=== PATIENT | female | born 1945 | race Caucasian/White ===

== ENCOUNTER 2024-01-10 10:41 | Inpatient (IN) | payer OTHER ==
[~2024-01-10] VITALS: Ht 154.9 cm; Wt 98.4 kg
[2024-01-10] VITALS (10 sets, daily range): BP systolic 114–164; PULSE 103–147; RESP 10–19; TEMP 97.1–98; O2SAT 93–98
[~2024-01-10 10:41] MED LIST: ASA400 PO; BENA40TA89 PO; BRIN8DRO OP; METO-442 PO; PARO40TA80 PO; POTA10TA15 PO; REMI100 IM; ZOLP10TA2 PO
[2024-01-10] MEDS: dilTIAZem HCL IVP 5 MG/ML VIAL IVP ONE (10:59)
[2024-01-10] MEDS: DILTIAZEM HCL 60 MG TABLET PO ONE (11:00)
[2024-01-10 11:12] LABS: BASOPHILS # (AUTO) 0.1 K/uL (0.0-0.2); BASOPHILS % (AUTO) 0.8 % (0.0-2.0); EOSINOPHILS # (AUTO) 0.3 K/uL (0.0-0.4); HEMATOCRIT 42.8 % (36-48); HEMOGLOBIN 14.2 g/dL (12.0-16.0); LYMPHOCYTES # (AUTO) 2.9 K/uL (1.0-5.5); LYMPHOCYTES % (AUTO) 19.9 % (20.5-51.5); MEAN CORPUSCULAR HEMOGLOBIN 29 pg (27-31); MEAN CORPUSCULAR HGB CONC 33 % (32-36); MEAN CORPUSCULAR VOLUME 88 fL (79.0-98.0); MONOCYTES % (AUTO) 6.6 % (1.7-9.3); NEUTROPHILS # (AUTO) 10.4 K/uL (1.8-7.7); NEUTROPHILS % (AUTO) 70.7 % (40.0-70.0); PLATELET COUNT (AUTO) 283 K/uL (130-430); RED BLOOD CELL COUNT(AUTO) 4.88 MIL/uL (4.2-6.2); RED CELL DISTRIBUTION WIDTH 14.7 % (9.0-15.0); WHITE BLOOD COUNT (AUTO) 14.7 K/uL (4.8-10.8)
[2024-01-10] MEDS ORDERED: ATOR20TA64 PO (11:18)
[2024-01-10] MEDS ORDERED: ISOS30TA85 PO (11:18)
[2024-01-10] MEDS ORDERED: HYDR12.55 PO (11:19)
[2024-01-10] MEDS ORDERED: METF-379 PO (11:19)
[2024-01-10] MEDS ORDERED: METO50TA16 PO (11:19)
[2024-01-10] MEDS ORDERED: BENA10TA73 PO (11:19)
[2024-01-10] MEDS ORDERED: ASPI-1393 PO (11:21)
[2024-01-10 11:26] LABS: PROTHROMBIN TIME 10.5 SECS (9.5-12.5)
[2024-01-10 11:30] LABS: ALANINE AMINOTRANSFERASE 19 U/L (12-78); ALBUMIN 3.6 g/dL (3.4-4.8); ANION GAP 11 (5-15); ASPARTATE AMINOTRANSFERASE 19 U/L (10-37); BILIRUBIN,DIRECT 0.1 mg/dL (0.0-0.3); CALCIUM 10.4 mg/dL (8.4-11.0); CARBON DIOXIDE 29 mmol/L (23-29); CHLORIDE 100 mmol/L (98-107); CREATINE KINASE, TOTAL 51 U/L (26-192); CREATININE 1.07 mg/dL (0.55-1.30); GLUCOSE 174 mg/dL (74-106); SODIUM SERUM 140 mmol/L (136-145); TOTAL BILIRUBIN 0.5 mg/dL (0.0-1.0); TOTAL PROTEIN, SERUM 8.1 g/dL (6.4-8.3); UREA NITROGEN, BLOOD 23 mg/dL (8-21)
[2024-01-10] MEDS: LIDOCAINE JECT 2% PF 100 MG/5ML SYRINGE IVP ONE (11:43)
[2024-01-10] MEDS: POTASSIUM CHLORIDE 20 MEQ/PKT PACKET PO ONE ×2 (11:52→15:47)
[2024-01-10] MEDS: DIGOXIN 0.5 MG/2 ML AMP IVP ONE ×2 (15:48→21:33)
[2024-01-10] MEDS: METOPROLOL TARTRATE 50 MG TABLET PO ONE (15:48)
[2024-01-10] MEDS: METOPROLOL TARTRATE 50 MG TABLET PO SCH (21:34)
[2024-01-10] MEDS: hydrALAZINE HCL 20 MG/ML VIAL IVP PRN (23:20)
[2024-01-11] VITALS (24 sets, daily range): BP systolic 117–167; PULSE 62–137; RESP 15–26; TEMP 96.2–98.1; O2SAT 93–98
[2024-01-11] MEDS ORDERED: ACETAMINOPHEN 325 MG TABLET PO PRN (00:15)
[2024-01-11] MEDS: NITROGLYCERIN 0.4 MG TAB.SUBL SL ONE (00:25)
[2024-01-11] MEDS: MORPHINE 2 MG/ML INJ. SYRINGE ONE (00:26)
[2024-01-11] MEDS: NITROGLYCERIN 0.4 MG TAB.SUBL SL PRN (00:28)
[2024-01-11] MEDS: MORPHINE 2 MG/ML INJ. SYRINGE IVP PRN (00:29)
[2024-01-11] MEDS: HYDROcodone/ACETAMIN 5-325 MG TAB (NORCO/ VICODIN) PO PRN (00:47)
[2024-01-11] MEDS: DIGOXIN 0.5 MG/2 ML AMP IVP ONE (03:32)
[2024-01-11 05:06] LABS: BASOPHILS # (AUTO) 0.1 K/uL (0.0-0.2); BASOPHILS % (AUTO) 0.6 % (0.0-2.0); EOSINOPHILS # (AUTO) 0.1 K/uL (0.0-0.4); EOSINOPHILS % (AUTO) 0.9 % (0.0-4.0); HEMATOCRIT 40.9 % (36-48); HEMOGLOBIN 13.6 g/dL (12.0-16.0); LYMPHOCYTES # (AUTO) 1.7 K/uL (1.0-5.5); LYMPHOCYTES % (AUTO) 14.5 % (20.5-51.5); MEAN CORPUSCULAR HEMOGLOBIN 29 pg (27-31); MEAN CORPUSCULAR HGB CONC 33 % (32-36); MEAN CORPUSCULAR VOLUME 88 fL (79.0-98.0); MONOCYTES # (AUTO) 0.7 K/uL (0.0-1.0); MONOCYTES % (AUTO) 6.1 % (1.7-9.3); NEUTROPHILS # (AUTO) 8.9 K/uL (1.8-7.7); NEUTROPHILS % (AUTO) 77.9 % (40.0-70.0); PLATELET COUNT (AUTO) 257 K/uL (130-430); RED BLOOD CELL COUNT(AUTO) 4.66 MIL/uL (4.2-6.2); WHITE BLOOD COUNT (AUTO) 11.5 K/uL (4.8-10.8)
[2024-01-11 05:50] LABS: ALANINE AMINOTRANSFERASE 19 U/L (12-78); ALBUMIN 3.3 g/dL (3.4-4.8); ANION GAP 8 (5-15); ASPARTATE AMINOTRANSFERASE 22 U/L (10-37); CALCIUM 10.2 mg/dL (8.4-11.0); CARBON DIOXIDE 28 mmol/L (23-29); CHLORIDE 102 mmol/L (98-107); CREATININE 1.07 mg/dL (0.55-1.30); GLUCOSE 135 mg/dL (74-106); POTASSIUM 4.6 mmol/L (3.5-5.1); SODIUM SERUM 138 mmol/L (136-145); TOTAL BILIRUBIN 0.4 mg/dL (0.0-1.0); TOTAL PROTEIN, SERUM 7.8 g/dL (6.4-8.3); UREA NITROGEN, BLOOD 28 mg/dL (8-21)
[2024-01-11] MEDS: ASPIRIN 81 MG TABLET(ECOTRIN) PO SCH (08:32)
[2024-01-11] MEDS ORDERED: INSULIN REGULAR, HUMAN 100 UNITS/ML, 3 ML VIAL (humuLIN R) SUBCUT PRN (09:30)
[2024-01-11] MEDS ORDERED: NON-FORMULARY MEDICATION (Hydrochlorothiazide 1 TAB) PO SCH (09:30)
[2024-01-11] MEDS ORDERED: ONDANSETRON HCL 4 MG/2 ML VIAL IVP PRN (09:30)
[2024-01-11] MEDS ORDERED: LORazepam 2 MG/ML VIAL IVP PRN (09:30)
[2024-01-11 10:05] LABS: THYROID STIMULATING HORMONE 2.28 uIu/mL (0.34-4.82)
[2024-01-11] MEDS: ISOSORBIDE MONONITRATE 30 MG TAB.ER.24H PO ONE (13:03)
[2024-01-11] MEDS: PARoxetine HCL 20 MG TABLET PO ONE (13:04)
[2024-01-11] MEDS ORDERED: BRINZOLAMIDE OP SCH (15:00)
[2024-01-11] MEDS ORDERED: BRIMONID TART OP SCH (15:00)
[2024-01-11] MEDS ORDERED: [UNRECOGNIZED DRUG - OTHER] OP SCH (15:00)
[2024-01-11] MEDS: AMIODARONE HCL 200 MG TABLET PO ONE (15:40)
[2024-01-11] MEDS: MESALAMINE 400 MG CAPSULE.DR PO SCH (15:41)
[2024-01-11] MEDS: DIGOXIN 0.25 MG TABLET PO ONE (15:41)
[2024-01-11] MEDS: HYDROCHLOROTHIAZIDE 12.5 MG CAPSULE (HCTZ) PO ONE (15:43)
[2024-01-11] MEDS: ZOLPIDEM TARTRATE 5 MG TABLET PO SCH (22:05)
[2024-01-11] MEDS: lisinopriL 20 MG TABLET PO SCH (22:06)
[2024-01-11] MEDS: ATORVASTATIN 20 MG TABLET PO SCH (22:07)
[2024-01-11] MEDS: AMIODARONE HCL 200 MG TABLET PO SCH (22:07)
[2024-01-11] MEDS: METOPROLOL TARTRATE 50 MG TABLET PO SCH (22:08)
[2024-01-12] VITALS (18 sets, daily range): BP systolic 121–166; PULSE 70–106; RESP 16–27; TEMP 97.6–98.6; O2SAT 95–100
[2024-01-12 07:32] LABS: ANION GAP 7 (5-15); CALCIUM 9.4 mg/dL (8.4-11.0); CARBON DIOXIDE 29 mmol/L (23-29); CHLORIDE 98 mmol/L (98-107); CREATININE 1.08 mg/dL (0.55-1.30); GLUCOSE 116 mg/dL (74-106); POTASSIUM 3.9 mmol/L (3.5-5.1); SODIUM SERUM 134 mmol/L (136-145); UREA NITROGEN, BLOOD 29 mg/dL (8-21)
[2024-01-12] MEDS ORDERED: HYDROCHLOROTHIAZIDE 12.5 MG CAPSULE (HCTZ) PO ONE (09:00)
[2024-01-12] MEDS ORDERED: ISOSORBIDE MONONITRATE 30 MG TAB.ER.24H PO SCH (09:00)
[2024-01-12] MEDS: HYDROCHLOROTHIAZIDE 12.5 MG CAPSULE (HCTZ) PO SCH (09:00)
[2024-01-12] MEDS: PARoxetine HCL 20 MG TABLET PO SCH (09:01)
[2024-01-12] MEDS: DIGOXIN 0.25 MG TABLET PO SCH (09:01)
[2024-01-12] MEDS: POTASSIUM CHLORIDE 10 MEQ TABLET.ER PO SCH (09:02)
[2024-01-12 09:56] LABS: BASOPHILS # (AUTO) 0.1 K/uL (0.0-0.2); BASOPHILS % (AUTO) 0.7 % (0.0-2.0); EOSINOPHILS # (AUTO) 0.3 K/uL (0.0-0.4); EOSINOPHILS % (AUTO) 2.3 % (0.0-4.0); HEMATOCRIT 38.8 % (36-48); HEMOGLOBIN 12.9 g/dL (12.0-16.0); LYMPHOCYTES # (AUTO) 2.3 K/uL (1.0-5.5); LYMPHOCYTES % (AUTO) 17.1 % (20.5-51.5); MEAN CORPUSCULAR HEMOGLOBIN 29 pg (27-31); MEAN CORPUSCULAR HGB CONC 33 % (32-36); MEAN CORPUSCULAR VOLUME 88 fL (79.0-98.0); MONOCYTES % (AUTO) 7.8 % (1.7-9.3); NEUTROPHILS # (AUTO) 9.7 K/uL (1.8-7.7); NEUTROPHILS % (AUTO) 72.1 % (40.0-70.0); PLATELET COUNT (AUTO) 250 K/uL (130-430); RED BLOOD CELL COUNT(AUTO) 4.41 MIL/uL (4.2-6.2); WHITE BLOOD COUNT (AUTO) 13.5 K/uL (4.8-10.8)
[2024-01-12] MEDS: HYDROcodone/ACETAMIN 10-325 MG TAB PO PRN (14:56)
[2024-01-12] MEDS: METOPROLOL TARTRATE 50 MG TABLET PO ONE (15:43)
[2024-01-12] MEDS: METOPROLOL TARTRATE 50 MG TABLET PO SCH (20:54)
[2024-01-13 01:15] VITALS: BP_SYST 125; PULSE 69; RESP 17; TEMP 96.8; O2SAT 94
[2024-01-13 07:06] LABS: BASOPHILS # (AUTO) 0.1 K/uL (0.0-0.2); BASOPHILS % (AUTO) 0.6 % (0.0-2.0); EOSINOPHILS # (AUTO) 0.3 K/uL (0.0-0.4); EOSINOPHILS % (AUTO) 2.4 % (0.0-4.0); HEMATOCRIT 39.8 % (36-48); HEMOGLOBIN 13.6 g/dL (12.0-16.0); LYMPHOCYTES % (AUTO) 17.8 % (20.5-51.5); MEAN CORPUSCULAR HEMOGLOBIN 30 pg (27-31); MEAN CORPUSCULAR HGB CONC 34 % (32-36); MEAN CORPUSCULAR VOLUME 88 fL (79.0-98.0); MONOCYTES # (AUTO) 0.8 K/uL (0.0-1.0); MONOCYTES % (AUTO) 7.4 % (1.7-9.3); NEUTROPHILS # (AUTO) 8.1 K/uL (1.8-7.7); NEUTROPHILS % (AUTO) 71.8 % (40.0-70.0); PLATELET COUNT (AUTO) 264 K/uL (130-430); RED BLOOD CELL COUNT(AUTO) 4.54 MIL/uL (4.2-6.2); RED CELL DISTRIBUTION WIDTH 14.6 % (9.0-15.0); WHITE BLOOD COUNT (AUTO) 11.3 K/uL (4.8-10.8)
[2024-01-13 07:34] LABS: ANION GAP 10 (5-15); CALCIUM 9.5 mg/dL (8.4-11.0); CARBON DIOXIDE 25 mmol/L (23-29); CHLORIDE 98 mmol/L (98-107); CREATININE 1.24 mg/dL (0.55-1.30); GLUCOSE 136 mg/dL (74-106); POTASSIUM 3.6 mmol/L (3.5-5.1); SODIUM SERUM 133 mmol/L (136-145); UREA NITROGEN, BLOOD 34 mg/dL (8-21)
[2024-01-13] MEDS ORDERED: AMIO200T6 PO (10:19)
[2024-01-13] MEDS ORDERED: DIGO250T PO (10:19)
[2024-01-13] MEDS ORDERED: METO-442 PO (10:19)
[2024-01-13] MEDS ORDERED: AMLO5TAB4 PO (10:19)
[2024-01-13 10:55] VITALS: O2SAT 96
[2024-01-13 11:08] VITALS: BP_SYST 124; PULSE 119; RESP 20; TEMP 97.2; O2SAT 96
[2024-01-13] MEDS: amLODIPine BESYLATE 5 MG TABLET PO SCH (11:25)
[2024-01-13 12:13] VITALS: BP_SYST 124; PULSE 119; RESP 20; TEMP 97.2; O2SAT 96
[2024-01-13] MEDS ORDERED: AMIODARONE HCL 200 MG TABLET PO SCH (21:00)
== END 2024-01-13 12:30 | disposition home or self-care (01) | DRG 309 ==
LOC: SED 10:41 → SIC 12:16 → STU 01-12 17:47
PROVIDERS: ADMIT Preventive Medicine Preventive Medicine/Occupational Environmental Medicine; ATTEND Preventive Medicine Preventive Medicine/Occupational Environmental Medicine
DX: I48.20 Chronic atrial fibrillation, unspecified (principal); E87.1 Hypo-osmolality and hyponatremia; I24.89 Other forms of acute ischemic heart disease; K51.90 Ulcerative colitis, unspecified, without complications; I47.20 Ventricular tachycardia, unspecified; E87.6 Hypokalemia; E11.65 Type 2 diabetes mellitus with hyperglycemia; I10 Essential (primary) hypertension; E78.5 Hyperlipidemia, unspecified; Z79.01 Long term (current) use of anticoagulants; Z79.82 Long term (current) use of aspirin; Z90.49 Acquired absence of other specified parts of digestive tract; Z93.2 Ileostomy status; Z79.899 Other long term (current) drug therapy; Z88.8 Allergy status to other drugs, medicaments and biological substances; Z79.84 Long term (current) use of oral hypoglycemic drugs
CPT/HCPCS: 36415; 71045; 80048; 80053; 80061; 80076; 82550; 82948; 83880; 84443; 84484; 85025; 85610; 85730; 87081; 93005; 93306; 96374; 97116-GP; 97163-GP; 97530-GP; 99291; G0378; J0360; J1160; J2270; J3490